=== PATIENT | female | born 1995 | race Caucasian/White ===

== ENCOUNTER 2017-02-18 14:58 | Emergency (ER) | payer OTHER | END 2017-02-18 16:36 | disposition left against medical advice (07) | LOC: ER1 14:58 | DX: M54.2 Cervicalgia (principal); M54.9 Dorsalgia, unspecified; E10.9 Type 1 diabetes mellitus without complications; Z53.21 Procedure and treatment not carried out due to patient leaving prior to being seen by health care provider | CPT/HCPCS: 99283; J1885 ==